=== PATIENT | female | born 1995 | race Caucasian/White ===

== ENCOUNTER 2023-11-16 06:10 | Observation (INO) | payer BC, SELFPAY ==
[2023-11-16] VITALS (17 sets, daily range): BP systolic 111–164; BP diastolic 67–106; BMI 31.3; BMI 30.2
--- NOTE | 2023-11-16 00:56 | ED.GENMED ---
History of Present Illness
General
Chief Complaint: Chest Problem
Source: patient and spouse
Exam Limitations: none
Time Seen by Provider: 11/16/23 00:47
Nursing documentation reviewed up to this point in time: agreed with
Travel History
Have you had any contact with someone who has COVID-19?: No
Do you have any symptoms of coronavirus? Fever > 100 degrees, chills, cough, shortness of breath, sore throat, loss of taste or smell, muscle aches, or headache?: No
History of Present Illness
History of Present Illness:
Pleasant 28-year-old female presents with shortness of breath and mid chest pain that began today. Patient started a new medication and 3 days later developed the symptoms. Patient does have a history of cystic fibrosis. Patient states she
started Trikafta. This is the second time she is started this medication. She feels that she did have similar side effects after the first time but she did not have it evaluated.
Vital signs are stable. Patient not hypoxic
Nursing note reviewed. I agree with nursing documentation up to this point in time.
Home Meds and allergies reviewed.
NUMBER AND COMPLEXITY OF PROBLEMS ADDRESSED AT THE ENCOUNTER
� Chronic conditions affecting care: Cystic fibrosis
� Acute Exacerbation and/or Progression of Chronic Illness: Cystic fibrosis
� Differential Diagnosis includes: Medication reaction, pneumonia, pulmonary emboli
AMOUNT AND/OR COMPLEXITY OF DATA TO BE REVIEWED AND ANALYZED
I performed an independent evaluation of the following and my interpretation is:
EKG:
CT:
X-rays:
Ultrasound:
Laboratory Studies:
Other:
Review of other/old records:
Clinical information was obtained by an independent historian:
Prescriptions/Medications Considered but not given:
Further testing considered but not performed:
RISK OF COMPLICATIONS AND/OR MORBIDITY OR MORTALITY OF PATIENT MANAGEMENT
Social determinants of health affecting care: Good Social Support
Discussion with other providers:
Escalation of care including admission/observation vs risk of discharge considered:
CRITICAL CARE NOTE:
Total Time (exclusive of procedures):
Update:
Past History
Past History
ED Past Medical History: Other (cystic fibrosis)
ED Past Surgical History: Bowel resection
Social History
Tobacco: Non-smoker
Alcohol: None
Drug: None
Living: with family
Phy Exam
General Physical Exam
General Presentation: well appearing and no apparent distress
General Skin: warm and dry
General Habitus: normal
General Mental: alert
General Hydration: appears well hydrated
ENT Exam
ENT Exam: EOMI, pharynx normal, neck supple and normocephalic
Eye Exam
Eye Exam: PERRL, cornea clear and conjunctiva normal
Cardiovascular Exam
Cardiovascular Exam: regular rate/rhythm, no edema, no murmur and normal peripheral pulses
Pulmonary Exam
Pulmonary Exam: lungs clear, no respiratory distress, no rales, no crackles, no rhonchi, no stridor, no cough and generalized wheezing
Gastrointestinal Exam
Gastrointestinal Exam: normal bowel sounds, non tender, soft, no organomegaly, no pulsatile mass and non distended
Neurological Exam
Neurological Exam: alert, oriented x3, no motor deficits and speech normal
Musculoskeletal Exam
Musculoskeletal Exam: full ROM and no edema
Skin Exam
Skin Exam: normal color, warm/dry, no rash and no petechia
Psychiatric Exam
Psychiatric Exam: normal mood/affect
Course
Orders/Labs/Results
Orders:
Orders
11/16/23 00:39
Electrocardiogram (*1) Urgent
Reason for Study: Shortness of Breath
EKG- Treatment ONCE
11/16/23 00:49
Electrocardiogram (*1) Stat
Reason for Study: Other
Other Reason for Exam: chest pain
Cardiac Monitoring- Treatment ONCE
EKG- Treatment ONCE
11/16/23 00:56
CT Chest Pe Study Urgent
Comment:
Reason For Exam: sudden dyspnea, 3 dys after new med
11/16/23 01:02
Test Result ONCE
11/16/23 01:10
Complete Blood Count/With Diff Urgent
Comprehensive Metabolic Panel Urgent
HCG, Serum Qualitative Screen Urgent
PTT Urgent
Prothrombin Time Urgent
Troponin I Urgent
11/16/23 01:23
Morphine Sulfate 4 mg IV NOW STA
11/16/23 03:53
Famotidine [Pepcid] 20 mg PO NOW STA
Mag Hydrox/Al Hydrox/Simeth [Maalox] 30 ml PO NOW STA
Sucralfate Suspension [Carafate Suspension] 1 gm PO NOW STA
11/16/23 03:54
Sucralfate Suspension [Carafate Suspension] 1 gm PO NOW STA
11/16/23 05:10
Ipratropium/Albuterol Sulfate [Duoneb] 3 ml INH R NOW ONE
11/16/23 05:54
Troponin I Urgent
11/16/23 05:55
Admit/Transfer Patient As Directed
Co-Sign Provider:
Level of Care: Observation services
Assign to:: Telemetry
Physician / Group: Lindsey nicoleists
Diagnosis: chest pain, dyspnea
Reason for Telemetry: Chest Pain syndromes
Date to Stop Telemetry: 11/18/23
Time to Stop Telemetry: 11:00
11/16/23 05:56
Code Status As Directed
Resuscitation Status: Full Code
11/16/23 Breakfast
Regular
At Your Request: Full Participation
11/16/23 06:05
HYDROmorphone [Dilaudid] 0.5 mg IV NOW STA
Ondansetron Injectable [Zofran] 4 mg IV NOW STA
11/16/23 07:00
Flush (0.9% Sodium Chloride) [Flush (Nss)] See Dose Instructions IV PER PROTOCOL
11/16/23 10:44
Acetaminophen [Tylenol] 650 mg PO Q4HPRN PRN
Ipratropium/Albuterol Sulfate [Duoneb] 3 ml INH R Q4HPRN PRN
Ketorolac [Toradol] 10 mg IV Q6HPRN PRN
Morphine Sulfate 2 mg IV Q4HPRN PRN
fluticasone propionate 1 spray NASAL BID
11/16/23 10:44
PULMONARY CONSULT Routine
Consulting Provider: Angelina Monroe
Was physician already notified: Yes
Activity As Directed
Activity Level: As Tolerated
Vital Signs As Directed
Frequency: Per unit guidelines
DX Deep Vein Thrombosis Video Routine
11/16/23 11:00
Escitalopram Oxalate [Lexapro] 10 mg PO DAILY
Levothyroxine [Synthroid] 25 mcg PO DAILY
11/16/23 11:30
Pancrelipase [Zenpep Delayed Release Capsule] 8 capsule PO AC
11/16/23 12:00
Ipratropium/Albuterol Sulfate [Duoneb] 3 ml INH R QID
11/16/23 18:00
Enoxaparin Sodium [Lovenox] 40 mg SC QPM
11/17/23 07:24
Basic Metabolic Panel IN AM
Complete Blood Count/No Diff IN AM
11/18/23 11:00
DC Protocol for Telemetry ONCE
Abnormal Lab Results
11/16/23
01:10
WBC 11.4 H 10^3/uL
(4.8-10.8)
Plt Count 403 H 10^3/uL
(130-400)
Absolute Lymphs (auto) 4.0 H 10^3/uL
(1.2-3.4)
Absolute Monos (auto) 0.7 H 10^3/uL
(0.1-0.6)
Glucose 129 H mg/dl
(70-99)
11/16/23 01:10
11/16/23 01:10
Vital Signs
Initial and Last Documented VS:
Initial Vital Signs
Temp Pulse Resp BP Pulse Ox
98.1 F 74 26 164/96 99
11/16/23 00:36 11/16/23 00:36 11/16/23 00:36 11/16/23 00:36 11/16/23 00:36
Last Documented Vital Signs
Temp Pulse Resp BP Pulse Ox
97.9 F 72 16 111/65 99
11/17/23 11:00 11/17/23 11:23 11/17/23 11:23 11/17/23 11:00 11/17/23 11:23
*Critical Care Note
Total Time (30-74mins, 75-104mins- exclusive of procedures): Not Applicable
Update Note
Update Note:
CTA chest PE
IMPRESSION:
Technically good contrast opacification of the pulmonary arteries
However there is significant limitation due to respiratory motion, particularly in the lung bases
No appreciable PE to the large proximal segmental arterial level in the lung bases
No evidence for PE to the segmental pulmonary arterial in the remainder of the lungs\\
No acute thoracic aortic pathology
Bilateral upper lobe mucus plugging, airway thickening, bronchiectasis with associated air trapping
consistent with history of cystic fibrosis
No signs of pneumonia
No pleural effusion or pneumothorax
Probably reactive left hilar and mediastinal nodes
11/16/2023 0529 AM: Patient still having dyspnea and some chest pain. She has received pain medicines and breathing treatments with minimal relief. Plan is to bring patient into the hospital to trend labs and continued observation.
11/16/2023 0604 AM: Patient still having some generalized pain. Will dose more medication
ED Attending Note
-
Portions of this chart may have been created with voice recognition software.� Occasional wrong word or��sound alike� substitutions may have occurred due to the inherent limitations of voice recognition software.
Discharge Plan
Departure
Patient Disposition: Admit
Date of Disposition: 11/16/23
Time of Disposition: 05:29
Admit to: Telemetry
Presentation/result/management discussed w/ accepting MD/DO: Hospitalist
Patient with high blood pressure during this ER visit?: Yes
Condition: Good
Discharge Problem:
Acute dyspnea
Interventions
Interventions:
*Risk Screen - Suicide Last Done: 11/16/23 00:36
*General Assessment Last Done: 11/16/23 01:14
*Neglect/Abuse Screening Last Done: 11/16/23 00:36
ED- Fall Risk Assessment Last Done: 11/16/23 01:15
*ED COVID-19 Vaccine History Last Done: 11/16/23 14:10
*Nursing Disposition Last Done: 11/16/23 15:55
ED- Cardiac Assessment Last Done: 11/16/23 01:15
ED- Pulmonary Assessment Last Done: 11/16/23 01:15
Discharge Date and Time
Discharge Date/Time: 11/16/23 15:56
[2023-11-16 01:18] LABS: % Basophils 0.7 % (0-2); % Eosinophils 4.5 % (0-6); % Immature Granulocytes 0.2 % (0-0.5); % Lymphocytes 35.1 % (20.5-51.1); % Monocytes 5.9 % (1.7-9.3); % Neutrophils 53.6 % (42.2-75.2); Absolute Basophils 0.1 10^3/uL (0-0.2); Absolute Eosinophils 0.5 10^3/uL (0-0.7); Absolute Monocytes 0.7 10^3/uL (0.1-0.6); Absolute Neutrophils 6.1 10^3/uL (1.4-6.5); Hematocrit 38.2 % (37.0-47.0); Hemoglobin 12.6 g/dL (12.0-16.0); Mean Corpuscular Hgb 28.9 pg (27.0-31.0); Mean Corpuscular Volume 87.6 fL (81.0-99.0); Mean Platelet Volume 9.2 fL (7.4-10.4); Nucleated Red Blood Cells % 0 %; Platelet Count 403 10^3/uL (130-400); Red Blood Cell Count 4.36 10^6/uL (4.20-5.40); Red Cell Dist. Width 13.2 % (11.5-14.5); White Blood Cell Count 11.4 10^3/uL (4.8-10.8)
[2023-11-16] MEDS: MORPHINE SULFATE 4 MG IV (01:30)
[2023-11-16 01:31] LABS: HCG, Serum Qualitative Screen Negative
[2023-11-16 01:32] LABS: APTT 26.4 Sec (23.4-35.0); INR 0.97; PT 12.7 Sec (11.4-14.6)
[2023-11-16 01:40] LABS: ALT (SGPT) 14 U/L (0-35); AST (SGOT) 18 U/L (14-36); Albumin 3.9 g/dl (3.5-5.0); Alkaline Phosphatase 114 U/L (38-126); Blood Urea Nitrogen 17 mg/dl (7-17); Calcium 9.4 mg/dl (8.4-10.2); Carbon Dioxide 28 mmol/L (22-30); Chloride 105 mmol/L (98-107); Estimated Creatinine Clearance > 125 ml/min; Glucose 129 mg/dl (70-99); Potassium 4.6 mmol/L (3.5-5.1); Sodium 140 mmol/L (135-145); Total Bilirubin 0.5 mg/dl (0.2-1.3); Total Protein 6.9 g/dl (6.3-8.2); eGFR > 60.00
[2023-11-16 01:45] LABS: Troponin I < 0.012 ng/ml
[2023-11-16] MEDS: PEPCID 20 MG PO (04:07)
[2023-11-16] MEDS: CARAFATE SUSPENSION 1 GM PO (04:08)
[2023-11-16] MEDS: MAALOX 30 ML PO (04:10)
[2023-11-16] MEDS: DUONEB 3 ML INH ×4 (05:14→19:54)
--- NOTE | 2023-11-16 05:34 | HPS.HSE ---
Family Physician
-
Family Physician: Criss Ray MD
Chief Complaint
-
SOB/CP
History of Present Illness
28 y/o F hx of CF (follows with Dr. Ray @ [facility]) presents to ER For SOB and mid chest pain. Chest pain began today, central chest, nonradiating, 02/19, persistent. No nausea/vomiting, no GI complaints such a n/v or diarrhea. No fever/chills. She
reports started a new medication for CF called Trikafta - this is actually her second instance trying the medication and she experienced similar side effects the 1st time around.
In ER, CT-A study and trop negative. Given persistence of chest pain - patient admitted under observation.
Medical History
Past Medical History
Past Medical History: Reports Hypothyroidism and Other (cystic fibrosis)
Past Surgical History: Reports Bowel Resection
Social History
Tobacco: Non-smoker
Alcohol: None
Drug: None
Living: With Family
Family History
Family History: Not pertinent
Allergies / Home Medications
Allergies reflects when Allergies were last updated in [employer].
Home Medications with original date entered in [employer]
Allergy/Medication List:
Allergies
Allergy/AdvReac Type Severity Reaction Status Date / Time
No Known Allergies Allergy Verified 11/16/23 00:38
Home Medications
Creon 10 1 dose PO AC 07/05/09
albuterol sulfate 90 mcg/actuation aerosol inhaler 2 puff inhalation BID 03/03/16
fluticasone propionate 50 mcg/actuation nasal spray,suspension 1 spray intranasal BID 03/03/16
elexacaftor 100 mg-tezacaf 50mg-ivacaf 75mg(d)/ivacaf 150mg(n) tablets (Trikafta) 1 tab PO DAILY 03/25/21
escitalopram oxalate 10 mg tablet 10 mg PO DAILY 03/25/21
levothyroxine 25 mcg tablet 25 mcg PO DAILY 03/25/21
vit D3-folic acid-vit B2-B6-B12 2,000 unit-800 mcg-0.32 mg tablet (Folgard) 5,000 units PO DAILY 03/25/21
Review of Systems
-
A 12 point ROS was completed and negative except as noted: Yes
Physical Exam
Vital Signs
Vital Signs
Temp Pulse Resp BP Pulse Ox
98.1 F 64 21 125/83 97
11/16/23 00:36 11/16/23 02:30 11/16/23 02:30 11/16/23 02:00 11/16/23 02:30
Physical Exam
General: Appears in Distress (mild from chest pain)
HEENT: NormoCephalic and Anicteric
Respiratory: Clear; No Wheezes or Rales
Cardiac: S1/S2 and Regular Rhythm
Neuro: AO x 3
Hematologic/Lymphatic: No Lymphadenopathy
Psych: Calm
Laboratory Results
-
11/16/23 01:10
11/16/23 01:10
Laboratory Results
PT 12.7 Sec (11.4-14.6) 11/16/23 01:10
INR 0.97 11/16/23 01:10
APTT 26.4 Sec (23.4-35.0) 11/16/23 01:10
Total Bilirubin 0.5 mg/dl (0.2-1.3) 11/16/23 01:10
AST 18 U/L (14-36) 11/16/23 01:10
ALT 14 U/L (0-35) 11/16/23 01:10
Alkaline Phosphatase 114 U/L (38-126) 11/16/23 01:10
Troponin I < 0.012 ng/ml 11/16/23 01:10
Data Reviewed
-
Lab Data: Labs Reviewed by me
Impression/Plan
-
Assessment:
Dyspnea/chest pain
hx of CF
- hard to differentiate from CF flare vs med side effect of Trikafta (known side effect of chest pain)
- initial trop negative, repeat pending
- CT -PE study without evidence of PE, PNA, pneumothorax, dissection. shows bilateral upper lobe mucous plugging, airway thickening, bronchiectasis with air trapping c/w CF.
- prn nebs
- pulm consult for additional guidance/recs
hx of Pancreatic insufficiency
- continue Creon
Hypothyroidism - continue replacement
DVT ppx: Lovenox
Code: Full
[2023-11-16] MEDS: ZOFRAN 4 MG IV (06:14)
[2023-11-16] MEDS: DILAUDID 0.5 MG IV (06:14)
[2023-11-16 06:37] LABS: Troponin I < 0.012 ng/ml
--- NOTE | 2023-11-16 08:57 | PHANOTE ---
Completed medication review with patient. In addition to daily medications documented, patient stated that she was prescribed Wixela Inhub 250-50 one inhalation twice dialy; however, she has not started taking this medication.
--- NOTE | 2023-11-16 10:42 | CM ---
Addendum entered by SUJATHA Moser 11/16/23 10:46:
gave observation letter. Signed copy on chart.
Original Note:
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 She lives with her boyfriend in one level apartment. She states there are [address] to get into her apartment. Her mother is her contact
person.
She does not use any DME.
[facility] on [address]
Follows with Criss Ray at [facility] for most of her medical care.
PLAN: home no needs.
--- NOTE | 2023-11-16 11:10 | W.PN.HOSP.TC ---
Today's Communication/Plan
-
ESR, CRP, lipase
Pulmonary consult
Toradol IV as needed
Assessment / Plan
Assessment / Plan
Gen-mild to moderate distress due to pain
HEENT-NC, AT, anicteric, clear oral mm
Neck-supple
CV-reg, no M, +S1/S2
Lungs-clear B/L
Abd-soft, NT, ND
Ext-no edema
Musculoskeletal-no cyanosis, clubbing
Skin-warm and dry
Neuro-grossly non-focal
Psych-calm, cooperative
Pleuritic chest pain -primarily epigastric region now. Shortness of breath resolved. Unclear etiology so far. No signs of pericarditis on EKG. Unclear if this is GI etiology versus other. CT chest negative for pulmonary embolism. Does show
changes of bronchiectasis in bilateral upper lobes likely due to cystic fibrosis. She is not coughing. Doubt infection.
Check ESR, CRP, lipase. LFTs are normal. Troponin negative x 2.
She is on Trikafta for her cystic fibrosis and just recently over the past 72 hours started to take it consistently. Previously she was missing a lot of doses due to forgetting to take it. Patient suspects that perhaps this medication is causing
her symptoms. Abdominal pain is a side effect of this medication. Will defer to pulmonary regarding decision to stop this medication.
Cystic fibrosis -stable. Follows with Dr. Ray at [facility].
History of pancreatic insufficiency -continue pancreatic enzymes.
History of hypothyroidism -she is no longer on levothyroxine, she states it was discontinued 2 years ago due to improvement in her labs.
Obesity due to excess calories
Full code
Anticipated Discharge: Within 24 hours
Subjective/Interval History
-
Date of Service: November 16, 2023
Patient seen and examined. Tearful, complaining of pleuritic pain primarily in the epigastric region. Shortness of breath resolved.
Objective Data
-
Labs:
Laboratory Results
11/16/23
01:10
WBC 11.4 H
Hgb 12.6
Hct 38.2
Plt Count 403 H
PT 12.7
INR 0.97
APTT 26.4
Sodium 140
Potassium 4.6
Chloride 105
Carbon Dioxide 28
BUN 17
Creatinine 0.7
Glucose 129 H
Calcium 9.4
Total Bilirubin 0.5
AST 18
ALT 14
Alkaline Phosphatase 114
Vital Signs:
Vital Signs
Temp Pulse Resp BP Pulse Ox
98.1 F 71 19 138/83 97
11/16/23 00:36 11/16/23 10:00 11/16/23 10:00 11/16/23 10:00 11/16/23 10:00
Review of Systems
-
History Source: Patient
All other systems: Reviewed and negative
[2023-11-16] MEDS: MORPHINE SULFATE 2 MG IV ×2 (11:18→17:16)
--- NOTE | 2023-11-16 11:27 | CON.PUL ---
Consultation
Consultation Request
Date/Time Consultation Requested: 11/16/2023-11 AM
Date/Time Consultation Performed: 11/16/2023-11:30 AM
Requesting Provider: Hospitalist
Performing Provider: Dr. Zhao
Reason for Consultation: Pleurisy and cystic fibrosis
Medical History
-
Chief Complaint: Pleurisy
History of Present Illness:
28-year-old female with underlying cystic fibrosis followed by Dr. Ray at [facility] presented with shortness of breath and chest pain found to have significant pleurisy and pulmonary consulted for cystic fibrosis/pleurisy 11/16/2023. She states the pain
which was anterior on both sides came on fairly suddenly. She was associated with shortness of breath. She usually goes to [facility] but she came here because it was a closer hospital. She has some shortness of breath. She does not have chest
congestion, and has a chronic cough mostly nonproductive. She is on nebulizers multiple times during the day and vest therapy as well. She did not complain of any abdominal pain, diarrhea, nausea, weakness or lower extremity swelling.
Past Medical History
Past Medical History: None (Cystic fibrosis. Obesity. Bowel resection.)
Social History
Tobacco: Non-smoker
Alcohol: None
Drug: None
Living: With Family
Occupational Exposures: No known asbestos exposure
Environmental Exposures: No known tuberculosis exposure
Family History
Family History: Reviewed & Not Pertinent
Allergies / Home Medications
Allergies
Allergy/AdvReac Type Severity Reaction Status Date / Time
No Known Allergies Allergy Verified 11/16/23 00:38
Home Medications
Medication Instructions Recorded Confirmed Last Taken Type
albuterol sulfate 90 mcg/actuation 2 puff inhalation BID PRN 03/03/16 11/16/23 11/15/23 History
aerosol inhaler shortness of breath
elexacaftor 100 mg-tezacaf 1 ea PO QPM cystic fibrosis 11/16/23 11/16/23 11/15/23 20:00 History
50mg-ivacaf 75mg(d)/ivacaf
150mg(n) tablets (Trikafta)
elexacaftor 100 mg-tezacaf 2 ea PO DAILY cystic fibrosis 11/16/23 11/16/23 11/15/23 History
50mg-ivacaf 75mg(d)/ivacaf
150mg(n) tablets (Trikafta)
folic acid-vit B6-vit B12 0.8 2 tab PO DAILY Supplement 11/16/23 11/16/23 11/15/23 History
mg-10 mg-115 mcg tablet
cwefpa-qblchayc-qafcxon 8 cap PO MEALS panceatic 11/16/23 11/16/23 11/15/23 History
12,000-38,000-60,000 unit insufficiency
capsule,delayed rel (Creon)
norgestimate 0.25 mg-ethinyl 1 tab PO DAILY Hormonal Agent 11/16/23 11/16/23 11/15/23 History
estradiol 35 mcg tablet (Franchesca)
sodium chloride 7 % for 1 inh inhalation DAILY 11/16/23 11/16/23 Unknown History
nebulization Lung/Breathing Issues
tobramycin 300 mg/5 mL in 0.225 % 300 mg inhalation BID cystic 11/16/23 11/16/23 11/14/23 History
sodium chloride for nebulization fibrosis
Review of Systems
-
Unable to Obtain full review of systems at this time due to: Other (Per HPI)
Vitals / Labs / Diagnostic Testing
Vital Signs
Temp Pulse Resp BP Pulse Ox
98.1 F 71 19 138/83 97
11/16/23 00:36 11/16/23 10:00 11/16/23 10:00 11/16/23 10:00 11/16/23 10:00
Lab Data
11/16/23 01:10
11/16/23 01:10
Laboratory Results
11/16/23
01:10
PT 12.7
INR 0.97
APTT 26.4
Diagnostic Testing:
Physical Exam
-
Exam:
Well-nourished and well-developed in no apparent distress
HEENT-atraumatic, normocephalic
Neck-supple, no JVD, no bruit
Heart-regular rate and rhythm-no murmurs, rubs or gallops
Chest with rare crackles, good aeration, no wheezes
Back without tenderness
Abdomen-soft, nontender, nondistended, no hepatosplenomegaly
Extremities-no cyanosis, clubbing, edema and good peripheral pulses
Integument-intact, no rashes, lesions or ecchymosis
Neurology-alert and oriented, nonfocal motor and sensory exam
Assessment
-
28-year-old female with underlying cystic fibrosis followed by Dr. Ray at [facility] presented with shortness of breath and chest pain found to have significant pleurisy and pulmonary consulted for cystic fibrosis/pleurisy 11/16/2023.
Assessment
Pleurisy
Cystic fibrosis with mild flare
Chronic Trikafta usage
Pancreatic insufficiency
Leukocytosis
Conditions present prior to admission:
Cystic fibrosis
Pancreatic insufficiency
Hypothyroid
Bowel resection
Plan
Respiratory decompensation likely related to pleurisy
Supplemental oxygen if needed
Aspiration precautions
She is on 7% saline nebulizers twice daily in addition to tobramycin nebulizers-could resume if stays more than 24 hours where she could bring her home meds as we do not carry some of these
Trikafta (can cause abdominal pain and gastrointestinal issues, however, not necessarily chest pain) which she took intermittently potentially causing symptoms and could be held for now until reevaluated by Dr. Ray at [facility]
No obvious signs of active infection
Observe off antibiotics
Monitor leukocytosis
Toradol and Tylenol as needed
Monitor pleurisy
PPI
Pancreatic enzyme supplementation
Consider GI evaluation if epigastric pain persists
DVT prophylaxis-on Lovenox
Nutrition
Early mobilization
Outpatient pulmonary evaluation with Dr. Ray at [facility]
Diagnostic data:
CT chest 11/16/2023-no evidence for pulm embolism, changes related to cystic fibrosis with probable superimposed acute infectious inflammatory bronchitis bronchiolitis in the upper lobes bilaterally
Data Reviewed
-
EKG: Report reviewed by me
Radiology: Report reviewed by me
CT Scan: Image personally visualized and interpreted and Report reviewed by me
Labs: Labs reviewed by me
Old Records: Reviewed
Total Time Spent with Patient (in minutes): 55
[2023-11-16 11:58] LABS: Erythrocyte Sed Rate 15 mm/hour (0-20)
[2023-11-16 12:07] LABS: Lipase 44 U/L (23-300)
[2023-11-16] MEDS: PROTONIX 40 MG PO (12:17)
[2023-11-16] MEDS: TORADOL 15 MG IV (12:24)
[2023-11-16] MEDS: ZENPEP DELAYED RELEASE CAPSULE PO (12:31)
--- NOTE | 2023-11-16 12:57 | PTCARENOTE ---
pt aaox3. states she is in 8/10 sternal epigastric pain. pain med given as ordered. she is tearful and anxious about being in the hospital. nsr seen on monitor. room air. breath sounds diminished with poor ins effort due to pain.
[2023-11-16] MEDS: XANAX 0.25 MG PO (13:24)
--- NOTE | 2023-11-16 15:53 | PTCARENOTE ---
pt transferred to [facility]. will all belongings
[2023-11-16] MEDS: LOVENOX 40 MG SC (17:56)
[2023-11-16] MEDS: ZENPEP DELAYED RELEASE CAPSULE 8 CAPSULE PO (17:56)
--- NOTE | 2023-11-16 18:34 | PTCARENOTE ---
received pt AAOx3, lungs diminished, HR normal, no edema present. Pt complains of epigastric pain which radiates to her back. Morphine was given to help relieve pain. patient is stable, comfortable with call patel within reach. pt was oriented to
room. will continue to monitor patient during shift.
[2023-11-17 03:49] VITALS: BP 100/68
[2023-11-17 07:00] VITALS: BP 130/78
[2023-11-17] MEDS: PROTONIX 40 MG PO (07:59)
[2023-11-17] MEDS: ZENPEP DELAYED RELEASE CAPSULE 8 CAPSULE PO (08:00)
[2023-11-17 08:07] LABS: Hematocrit 34.9 % (37.0-47.0); Hemoglobin 11.5 g/dL (12.0-16.0); Mean Corpuscular Hgb 29.4 pg (27.0-31.0); Mean Corpuscular Volume 89.3 fL (81.0-99.0); Mean Platelet Volume 9.6 fL (7.4-10.4); Platelet Count 352 10^3/uL (130-400); Red Blood Cell Count 3.91 10^6/uL (4.20-5.40); Red Cell Dist. Width 13.8 % (11.5-14.5); White Blood Cell Count 7.2 10^3/uL (4.8-10.8)
[2023-11-17] MEDS: DUONEB 3 ML INH ×2 (08:10→11:21)
[2023-11-17 08:31] LABS: Blood Urea Nitrogen 12 mg/dl (7-17); Calcium 8.2 mg/dl (8.4-10.2); Carbon Dioxide 24 mmol/L (22-30); Chloride 109 mmol/L (98-107); Estimated Creatinine Clearance > 125 ml/min; Glucose 84 mg/dl (70-99); Potassium 4.4 mmol/L (3.5-5.1); Sodium 134 mmol/L (135-145); eGFR > 60.00
--- NOTE | 2023-11-17 09:52 | W.PN.PUL.V3 ---
Today's Communication / Plan
-
.
Doubt pleurisy was medication induced.
Nonsteroidals and Tylenol as needed.
Stable for discharge.
Outpatient pulmonary-[facility] Follow-up
Assessment
-
28-year-old female with underlying cystic fibrosis followed by Dr. Ray at [facility] presented with shortness of breath and chest pain found to have significant pleurisy and pulmonary consulted for cystic fibrosis/pleurisy 11/16/2023.
Assessment
Pleurisy
Cystic fibrosis with mild flare
Chronic Trikafta usage
Pancreatic insufficiency
Leukocytosis
Conditions present prior to admission:
Cystic fibrosis
Pancreatic insufficiency
Hypothyroid
Bowel resection
Plan
Respiratory decompensation likely related to pleurisy
Supplemental oxygen if needed
Aspiration precautions
She is on 7% saline nebulizers twice daily in addition to tobramycin nebulizers-could resume if stays more than 24 hours where she could bring her home meds as we do not carry some of these
Trikafta (can cause abdominal pain and gastrointestinal issues, however, not necessarily chest pain) which she took intermittently potentially causing symptoms and could be held for now until reevaluated by Dr. Ray at [facility]
No obvious signs of active infection
Observe off antibiotics
Monitor leukocytosis
Toradol and Tylenol as needed
Monitor pleurisy
PPI
Pancreatic enzyme supplementation
Lipase normal
DVT prophylaxis-on Lovenox
Nutrition
Increase activity.
Stable for proposed discharge from a pulmonary perspective
Reviewed with primary team/hospitalist
Outpatient pulmonary evaluation with Dr. Ray at [facility]
Diagnostic data:
CT chest 11/16/2023-no evidence for pulm embolism, changes related to cystic fibrosis with probable superimposed acute infectious inflammatory bronchitis bronchiolitis in the upper lobes bilaterally
Subjective Data
-
Date of Service:
Date of Service: November 17, 2023
Chief Complaint: Dyspnea Follow Up and Other (Pleurisy)
Subjective:
feels much improved, pleurisy, almost all gone, no chest pain, shortness of breath, or abdominal pain
Review of Systems
General: Other ( per HPI)
Objective Data
Data Reviewed
Vital Signs / I&O:
Vital Signs
Temp Pulse Resp BP Pulse Ox
98.4 F 76 16 130/78 98
11/17/23 07:00 11/17/23 08:15 11/17/23 08:15 11/17/23 07:00 11/17/23 08:15
Intake and Output
11/16/23 11/17/23 11/18/23
06:59 06:59 06:59
Intake Total 240 / 240
Balance 240 / 240
SaO2: 98
Physical Exam
General: Respiratory Distress (n) and Comfortable
HEENT: Normocephalic, Anicteric and Moist Mucous Membranes
Cardiovascular: Regular Rhythm
Respiratory: Wheeze (n), Crackles (n), Rhonchi, Non-Labored Respirations, Accessory Resp Muscle Use (n) and Stridor
GI: Soft, Non Distended and Non Tender
Neurology: Awake, Alert and No Motor Deficits
Skin: Good Color, Cyanosis (n), Jaundice (n) and Rash (n)
Labs/Micro/Reports
Lab Data
11/17/23 07:24
11/17/23 07:24
--- NOTE | 2023-11-17 10:46 | W.PN.HOSP.TC ---
Today's Communication/Plan
-
Discharge
Assessment / Plan
Assessment / Plan
Gen-AAOx3, NAD
HEENT-NC, AT, anicteric, clear oral mm
Neck-supple
CV-reg, no M, +S1/S2
Lungs-clear B/L
Abd-soft, NT, ND
Ext-no edema
Musculoskeletal-no cyanosis, clubbing
Skin-warm and dry
Neuro-grossly non-focal
Psych-calm, cooperative
Pleuritic chest pain -unclear trigger for pleurisy. Possible viral syndrome. Pain improved with anti-inflammatory. Can discharge on as needed ibuprofen. Discussed with pulmonary, outpatient follow-up.
Cystic fibrosis -stable. Follows with Dr. Ray at [facility].
History of pancreatic insufficiency -continue pancreatic enzymes.
History of hypothyroidism -she is no longer on levothyroxine, she states it was discontinued 2 years ago due to improvement in her labs.
Obesity due to excess calories
Full code
Dispo -medically stable for discharge home today. I left a voicemail for patient's mother to call me back.
32 minutes spent in discharge process.
Anticipated Discharge: Today
Subjective/Interval History
-
Date of Service: November 17, 2023
Patient seen and examined. Feeling much better. Denies any pain currently. No complaints.
Objective Data
-
Labs:
Laboratory Results
11/17/23
07:24
WBC 7.2
Hgb 11.5 L
Hct 34.9 L
Plt Count 352
Sodium 134 L
Potassium 4.4
Chloride 109 H
Carbon Dioxide 24
BUN 12
Creatinine 0.7
Glucose 84
Calcium 8.2 L
Vital Signs:
Vital Signs
Temp Pulse Resp BP Pulse Ox
98.4 F 76 16 130/78 98
03/07/24 07:00 11/17/23 08:15 11/17/23 08:15 11/17/23 07:00 11/17/23 09:52
I&O
11/16/23 11/17/23 11/18/23
06:59 06:59 06:59
Intake Total 240 / 240
Balance 240 / 240
Review of Systems
-
History Source: Patient
All other systems: Reviewed and negative
--- NOTE | 2023-11-17 10:50 | W.DS.TRANS ---
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
-
Discharge Instructions:
Discharge Diagnosis/Procedures Pleurisy
Diet Regular
Activity As tolerated
Driving Restrictions As prior to admission
Bathing Restrictions None
Instructions:
Stand-Alone Forms:
Changes to Home Medications: No
Discharge Medications:
DC Medications w/original date entered in [employer]
albuterol sulfate 90 mcg/actuation aerosol inhaler 2 puff inhalation BID PRN shortness of breath 03/03/16
elexacaftor 100 mg-tezacaf 50mg-ivacaf 75mg(d)/ivacaf 150mg(n) tablets (Trikafta) 1 ea PO QPM cystic fibrosis 11/16/23
elexacaftor 100 mg-tezacaf 50mg-ivacaf 75mg(d)/ivacaf 150mg(n) tablets (Trikafta) 2 ea PO DAILY cystic fibrosis 11/16/23
folic acid-vit B6-vit B12 0.8 mg-10 mg-115 mcg tablet 2 tab PO DAILY Supplement 11/16/23
wybegk-vxnhcrct-yvxcvym 12,000-38,000-60,000 unit capsule,delayed rel (Creon) 8 cap PO MEALS panceatic insufficiency 11/16/23
norgestimate 0.25 mg-ethinyl estradiol 35 mcg tablet (Franchesca) 1 tab PO DAILY Hormonal Agent 11/16/23
sodium chloride 7 % for nebulization 1 inh inhalation DAILY Lung/Breathing Issues 11/16/23
tobramycin 300 mg/5 mL in 0.225 % sodium chloride for nebulization 300 mg inhalation BID cystic fibrosis 11/16/23
ibuprofen 800 mg tablet 800 mg PO Q6H PRN chest pain #30 tabs 11/17/23
pantoprazole 40 mg tablet,delayed release 40 mg PO DAILY #30 tabs 11/17/23
Home Medication Changes
Pending Results: No
[2023-11-17 11:00] VITALS: BP 111/65
[2023-11-17] MEDS: ZENPEP DELAYED RELEASE CAPSULE PO (12:56)
== END 2023-11-17 13:49 | disposition home or self-care (01) ==
LOC: 4 WEST ACU 06:10
PROVIDERS: ADMITTING PHYSICIAN Internal Medicine; ATTENDING PHYSICIAN Hospitalist; EMERGENCY PHYSICIAN Student in an Organized Health Care Education/Training Program; FAMILY PHYSICIAN Internal Medicine; OTHER PHYSICIAN Internal Medicine Critical Care Medicine
DX: R09.1 Pleurisy (principal); E84.9 Cystic fibrosis, unspecified; E03.9 Hypothyroidism, unspecified; E66.09 Other obesity due to excess calories; K86.89 Other specified diseases of pancreas; Z68.30 Body mass index [BMI] 30.0-30.9, adult; Z79.899 Other long term (current) drug therapy
CPT/HCPCS: 71275; 80048; 80053; 83690; 84484; 84703; 85025; 85027; 85610; 85652; 85730; 86140; 87070; 93005; 94640; 94669; 96374; 96375; 99285; G0378; Q9967